=== PATIENT | male | born 1955 | race African-American/Black ===

== ENCOUNTER 2019-06-25 13:46 | Emergency (ER) | payer MEDICAID ==
[~2019-06-25] VITALS: Ht 177.8 cm; Wt 77.0 kg
[~2019-06-25 13:46] MED LIST: PHEN100C4
[2019-06-25 13:48] VITALS: BP 148/84
== END 2019-06-25 17:40 | disposition home or self-care (01) ==
LOC: ER 13:58
DX: R56.9 Unspecified convulsions (principal); H54.7 Unspecified visual loss; Z98.890 Other specified postprocedural states
CPT/HCPCS: 99283

== ENCOUNTER 2019-07-24 18:39 | Emergency (ER) | payer MEDICAID ==
[~2019-07-24] VITALS: Ht 175.3 cm; Wt 66.0 kg
[2019-07-24] MEDS ORDERED: SODIUM CHLORIDE 0.9% 1,000 ML IV ONE (19:00)
[2019-07-24] MEDS ORDERED: LORAZEPAM 2MG/ML CPJ IM ONE (19:00)
[2019-07-24 20:27] LABS: BASOPHILS % 0.4 % (0.0-2.0); CHLORIDE 105 mEq/L (98-107); EOSINOPHILS % 0.7 % (0.0-5.0); HEMATOCRIT. 43.7 % (42.0-52.0); HEMOGLOBIN. 13.8 g/dL (14.0-18.0); LYMPHOCYTES % 10.1 % (20.0-50.0); MEAN CORPUSCULAR HEMOGLOBIN 25.3 pg (28.0-32.0); MEAN CORPUSCULAR VOLUME 80.3 fL (80.0-94.0); MONOCYTES % 3.6 % (2.0-8.0); NEUTROPHILS % 85.2 % (40.0-76.0); RED BLOOD CELL COUNT 5.44 mill/uL (4.7-6.1); RED CELL DISTRIBUTION WIDTH 15.6 % (11.6-14.6)
[2019-07-24 20:31] LABS: ETHANOL BLOOD < 10 mg/dL
[2019-07-24 20:34] LABS: VALPROIC ACID <3.0 ug/mL ug/mL (50-100)
[2019-07-24 20:40] LABS: CARBAMAZEPINE < 0.5 ug/mL (4-12); PHENOBARBITAL < 2.1 ug/mL (15.0-40.0)
[2019-07-24] MEDS ORDERED: PHENYTOIN SODIUM 1,000 MG in SODIUM CHLORIDE 0.9% 100 ML IV ONE (21:00)
[2019-07-25 09:30] VITALS: BP 136/80
== END 2019-07-25 09:56 | disposition home or self-care (01) ==
LOC: ER 18:39
DX: R56.9 Unspecified convulsions (principal)
CPT/HCPCS: 36415; 71045; 80053; 80156; 80165; 80184; 80185; 80320; 84484; 85025; 93005; 96365; 96372; 99285; J1165; J2060; J7030; J7050; G0480

== ENCOUNTER 2020-07-30 11:34 | Emergency (ER) | payer MEDICAID ==
[~2020-07-30] VITALS: Ht 180.3 cm; Wt 70.0 kg
[2020-07-30] MEDS ORDERED: SODIUM CHLORIDE 0.9% 1,000 ML IV ONE (12:15)
[2020-07-30 12:25] LABS: BASOPHILS % 0.3 % (0.0-2.0); EOSINOPHILS % 0.6 % (0.0-5.0); HEMATOCRIT. 44.2 % (42.0-52.0); HEMOGLOBIN. 13.6 g/dL (14.0-18.0); LYMPHOCYTES % 16.1 % (20.0-50.0); MEAN CORPUSCULAR HEMOGLOBIN 25.1 pg (28.0-32.0); MEAN CORPUSCULAR VOLUME 81.7 fL (80.0-94.0); MEAN PLATELET VOLUME 8.3 fl (7.4-10.4); MONOCYTES % 5.7 % (2.0-8.0); NEUTROPHILS % 77.3 % (40.0-76.0); PLATELET 224 x1000/uL (130-400); RED CELL DISTRIBUTION WIDTH 15.3 % (11.6-14.6)
[2020-07-30 12:34] LABS: CHLORIDE 111 mEq/L (98-107)
[2020-07-30 12:39] LABS: ETHANOL BLOOD < 10 mg/dL
[2020-07-30 13:20] VITALS: BP 157/91
[2020-07-30 13:28] LABS: CLARITY URINE CLEAR (CLEAR); COLOR URINE YELLOW (YELLOW); KETONES URINE NEGATIVE (NEGATIVE); LEUKOCYTE ESTERASE URINE NEGATIVE (NEGATIVE); NITRITE URINE NEGATIVE (NEGATIVE); OCCULT BLOOD URINE TRACE (NEGATIVE); PROTEIN URINE TRACE (NEGATIVE); SPECIFIC GRAVITY URINE 1.014 (1.005-1.030); UROBILINOGEN URINE 0.2 E.U./dL (0.2-1.0)
[2020-07-30] MEDS ORDERED: PHENYTOIN SODIUM 1,000 MG in SODIUM CHLORIDE 0.9% 100 ML IV ONE (13:30)
[2020-07-30 13:37] LABS: *AMPHETAMINES SCREEN URINE NEGATIVE (NEGATIVE); *BARBITURATES SCREEN URINE NEGATIVE (NEGATIVE); *BENZODIAZEPINES SCREEN URINE NEGATIVE (NEGATIVE); *COCAINE SCREEN URINE PRESUMTIVE POSITIVE (NEGATIVE)
[2020-07-30 13:38] LABS: CANNABINOID URINE SCREEN PRESUMTIVE POSITIVE (NEGATIVE); METHADONE URINE SCREEN NEGATIVE (NEGATIVE); OPIATES URINE SCREEN NEGATIVE (NEGATIVE); PHENCYCLIDINE URINE SCREEN NEGATIVE (NEGATIVE)
== END 2020-07-30 18:50 | disposition left against medical advice (07) ==
LOC: ER 11:43 → EDBEDREQTM 14:02 → EDBEDREQ 14:02 → ENRESERV 15:29 → CANRESERV 15:29 → ER 18:50 → CANBEDREQ 18:54
DX: G40.909 Epilepsy, unspecified, not intractable, without status epilepticus (principal); F14.10 Cocaine abuse, uncomplicated; E11.9 Type 2 diabetes mellitus without complications
CPT/HCPCS: 36415; 70450; 80053; 80185; 80305; 80320; 81003; 85025; 96361; 96365; 96366; 99284; J1165; J7030; J7050; Z7610; G0480

== ENCOUNTER 2021-03-27 14:22 | Emergency (ER) | payer MEDICAID ==
[~2021-03-27] VITALS: Ht 172.7 cm; Wt 70.0 kg
[2021-03-27 15:34] LABS: BASOPHILS % 0.3 % (0.0-2.0); EOSINOPHILS % 0.2 % (0.0-5.0); HEMOGLOBIN. 13.3 g/dL (14.0-18.0); LYMPHOCYTES % 9.4 % (20.0-50.0); MEAN CORPUSCULAR HEMOGLOBIN 24.8 pg (28.0-32.0); MEAN CORPUSCULAR VOLUME 80.4 fL (80.0-94.0); MEAN PLATELET VOLUME 8.5 fl (7.4-10.4); MONOCYTES % 6.5 % (2.0-8.0); NEUTROPHILS % 83.6 % (40.0-76.0); PLATELET 226 x1000/uL (130-400); RED BLOOD CELL COUNT 5.35 mill/uL (4.7-6.1)
[2021-03-27 15:39] LABS: CHLORIDE 107 mEq/L (98-107)
[2021-03-27] MEDS ORDERED: SODIUM CHLORIDE 0.9% 1,000 ML IV ONE (19:00)
[2021-03-27] MEDS ORDERED: PHENYTOIN SODIUM 1,000 MG in SODIUM CHLORIDE 0.9% 100 ML IV ONE (19:00)
[2021-03-27] MEDS ORDERED: PHEN300C6 MT (19:24)
[2021-03-27] MEDS ORDERED: PHENYTOIN SODIUM EXTENDED 100MG CAPSULE PO ONE (21:00)
[2021-03-27 21:05] VITALS: BP 135/83
== END 2021-03-27 21:30 | disposition left against medical advice (07) ==
LOC: ER 14:22
DX: R56.9 Unspecified convulsions (principal); E11.9 Type 2 diabetes mellitus without complications; F14.10 Cocaine abuse, uncomplicated; Z79.899 Other long term (current) drug therapy
CPT/HCPCS: 36415; 80053; 80185; 82962; 85025; 96365; 99291; J1165; J7030; J7050